=== PATIENT | male | born 1940 | race Caucasian/White ===

== ENCOUNTER 2019-02-23 01:16 | Inpatient (IN) | payer MEDICARE ==
[~2019-02-23] VITALS: Ht 177.8 cm; Wt 103.6 kg
[~2019-02-23 01:16] MED LIST: LEVSOD100 PO; LOSA25 PO; LOVA40 PO; WARF5 PO
[2019-02-23 01:29] LABS: BASOPHILS ABSOLUTE AUTO 0.09 K/mm3 (0.00-0.23); BASOPHILS PERCENT AUTO 1 % (0-2); EOSINOPHILS PERCENT AUTO 2 % (0-6); Hematocrit 48.2 % (37.0-53.0); Hemoglobin 15.8 g/dL (13.5-17.5); IMMATURE GRAN ABSOLUTE AUTO 0.09 K/mm3 (0.00-0.10); IMMATURE GRAN PERCENT AUTO 1 % (0-1); LYMPHOCYTES ABSOLUTE AUTO 3.75 K/mm3 (0.84-5.20); LYMPHOCYTES PERCENT AUTO 26 % (21-46); MONOCYTES ABSOLUTE AUTO 0.89 K/mm3 (0.16-1.47); MONOCYTES PERCENT AUTO 6 % (4-13); Mean Corpuscular HGB 28.7 pg (26.0-34.0); Mean Corpuscular HGB Conc 32.8 g/dL (31.5-36.5); Mean Corpuscular Volume 88 fL (80-100); NEUTROPHILS ABSOLUTE AUTO 9.25 K/mm3 (1.96-9.15); NEUTROPHILS PERCENT AUTO 64 % (41-73); Platelet Count 195 K/mm3 (150-400); RDW Coefficient Variation 13.4 % (11.7-14.2); RDW Standard Deviation 43.3 fL (35.1-46.3); White Blood Cell Count 14.37 K/mm3 (4.00-11.30)
[2019-02-23 01:44] LABS: International Normalized Ratio 1.82; Prothrombin Time Results 18.3 Sec (9.7-11.5)
[2019-02-23 01:51] LABS: Alanine Aminotransfer (ALT/SGP 28 U/L (12-78); Albumin/Globulin Ratio 1.2 (0.8-1.8); Alk Phos 60 U/L (50-136); Anion Gap 8 mmol/L (6-16); Aspartate Aminotrans (AST/SGOT 23 U/L (12-37); Bilirubin, Total 0.7 mg/dL (0.1-1.0); Blood Urea Nitrogen 26 mg/dL (8-24); Bun/Creatinine Ratio 24.3 (12.0-20.0); CO2, Blood 26 mmol/L (21-32); Calcium, Blood 8.7 mg/dL (8.5-10.1); Chloride, Blood 108 mmol/L (98-108); Creatinine, Blood 1.07 mg/dL (0.60-1.20); Globulin, Blood 3.2 g/dL (2.2-4.0); Glomerular Filtration Rate >60 (60-); Glucose, Blood 186 mg/dL (70-99); Potassium, Blood 4.2 mmol/L (3.5-5.5); Sodium, Blood 142 mmol/L (136-145); Total Protein, Blood 7.2 g/dL (6.4-8.2); Troponin I 0.075 ng/mL (0.000-0.040)
[2019-02-23 01:54] LABS: PCO2 Arterial 45.8 mmHg (35-45); PO2 Arterial 92.7 mmHg (80-100); pH Blood Arterial 7.31 (7.35-7.45)
[2019-02-23 03:58] LABS: Source, Urine Catheter
[2019-02-23 04:03] LABS: Bilirubin, Urine Neg (Neg); Blood, Urine 1+ (Neg); Glucose Qualitative, Urine Neg (Neg); Ketones, Urine Neg (Neg); Leukocyte Esterase, Urine Neg (Neg); Nitrite, Urine Neg (Neg); Protein, Urine 3+ (Neg); Specific Gravity, Urine 1.025 (1.003-1.022); Urobilinogen, Urine 1+ (Normal)
[2019-02-23 04:07] LABS: Appearance, Urine Clear (Clear); Color, Urine Yellow (P-Yellow)
[2019-02-23 04:41] LABS: Amorphous Light (0-Heavy); Bacteria Not Seen /hpf; Mucus Light (0-Heavy); Red Blood Cells, Urine 0-2 /hpf (0-2); Squamous Epithelial Cells Not Seen /hpf (Few); White Blood Cells, Urine Rare /hpf (0-5)
[2019-02-23 05:35] LABS: Hemoglobin 14.5 g/dL (13.5-17.5); Mean Corpuscular HGB 28.6 pg (26.0-34.0); Mean Corpuscular Volume 87 fL (80-100); Mean Platelet Volume 10.8 fL (9.1-12.4); Platelet Count 164 K/mm3 (150-400); RDW Coefficient Variation 13.5 % (11.7-14.2); RDW Standard Deviation 43.2 fL (35.1-46.3); Red Blood Cell Count 5.07 M/mm3 (4.30-5.90); White Blood Cell Count 16.79 K/mm3 (4.00-11.30)
[2019-02-23 06:37] LABS: Alanine Aminotransfer (ALT/SGP 31 U/L (12-78); Albumin, Blood 3.5 g/dL (3.4-5.0); Albumin/Globulin Ratio 1.2 (0.8-1.8); Alk Phos 55 U/L (50-136); Anion Gap 7 mmol/L (6-16); Aspartate Aminotrans (AST/SGOT 92 U/L (12-37); Bilirubin, Total 0.8 mg/dL (0.1-1.0); Blood Urea Nitrogen 29 mg/dL (8-24); Bun/Creatinine Ratio 27.1 (12.0-20.0); CO2, Blood 25 mmol/L (21-32); Calcium, Blood 8.2 mg/dL (8.5-10.1); Chloride, Blood 109 mmol/L (98-108); Creatinine, Blood 1.07 mg/dL (0.60-1.20); Globulin, Blood 2.8 g/dL (2.2-4.0); Glomerular Filtration Rate >60 (60-); Glucose, Blood 216 mg/dL (70-99); Sodium, Blood 141 mmol/L (136-145); Total Protein, Blood 6.3 g/dL (6.4-8.2)
--- NOTE | 2019-02-23 06:42 | NUR ---
SHIFT NOTE: PT ARRIVED VIA GURNEY FROM ED AT APPRX 0600. PT RESPONDS ONLY TO PAIN AND HAS OCCASIONAL BODY TWITCHING. PUPILS FIXED BILATERALLY 2mm. PT VENTILATED, SETTING: AC 16 Vt 450 PEEP 5.0 FiO2 40% SATS 94%. PT WITH GREAT FRIEND SUPPORT AT BEDSIDE AND WHO STATE HAVE KNOWN PT FOR APPRX 50 YEARS. PT'S SON IS APPARENTLY DRIVING DOWN FROM [place] AND SHOULD BE ARRIVING SOON. PT WITH PROPOFOL INFUSING AT 30mcg AND NS 75/hr. IV PATENT. KAMARA PATENT AND DRAINING NAGI COLORE URINE WITH SEDIMENT.
--- NOTE | 2019-02-23 07:15 | NUR ---
START OF SHIFT NOTE: RECEIVED REPORT FROM DONNELL RN, ASSUMED CARE, PATIENT IS AWAKE, ALERT AND ORIENTED, ABLE TO FOLLOW COMMANDS AND ANSWER ALL QUESTIONS, LUNG SOUNDS CLEAR, SR/ST, WITH HR IN UPPER 90'S, INSULIN DRIP HAS BEEN STOPPED, PATIENT NOW ON AC/HS CHEMSTICKS, WITH HUMALOG AND LANTUS COVERAGE, PATIENT HAS SIGNIFICANT OTHER SLEEPING IN ROOM, RIGHT FOOT HAS HALLUX AND TOE NEXT TO IT MISSING, PATIENT REPORTS THAT BOTH TOES WERE AMPUTATED AFTER AN INFECTION, PODIATRY CONSULTED, CALL LIGHT IN REACH, WILL CONTINUE TO MONITOR.
--- NOTE | 2019-02-23 07:15 | NUR ---
START OF SHIFT NOTE: RECEIVED REPORT FROM DONNELL RN, ASSUMED CARE, PATIENT IS SEDATED WITH PROPOFOL AT 30, ON MECHANICAL VENTILATION, SETTINGS ARE 16/5/450/40 %, PATIENT WITHDRAWS FROM PAINFUL STIMULI, LUNG SOUNDS ARE CLEAR, SR WITH BBB WITH HR IN 90'S, BOWEL TONES PRESENT, KAMARA CATHETER IN PLACE DRAINING ADEQUATE AMOUNTS OF URINE, SON ARRIVED AT BEDSIDE, EX CALLED FOR UPDATE, REFERRED TO SON, FRIENDS AT BEDSIDE, CALL LIGHT IN REACH, WILL CONTINUE TO MONITOR.
--- NOTE | 2019-02-23 08:45 | NUR ---
DR. MCINTYRE IN TO SEE PATIENT, DR. LEDEZMA CONSULTED, CONSULT ORDERED AND DR. LEDEZMA NOTIFIED. ALSO PALLIATIVE CARE IN TO SEE FAMILY, MALDONADO CABRAL WILL ORDER COMFORT CART FOR FAMILY, SON AT BEDSIDE, CALL LIGHT IN REACH, WILL CONTINUE TO MONITOR.
--- NOTE | 2019-02-23 10:10 | NUR ---
INITIAL PALLIATIVE CARE VISIT: Case conferenced with and RN, reviewed EMR prior to my visit. Pt is a 78 yr old male who was found unresponsive by his friends/neighbors after being asked by an [place] friend to check on him at home. Pt had verbalized that he was not feeling well by phone to friend. Pt also had emesis and probable aspiration during LOC. Upon arrival to ER and after studies done, pt found with [employer] DEAN, intracranial and subarachnoid bleed, diffuse and extending into ventricles. Pt has [employer] DEAN edema. He was ventilated and admitted to ICU. Pt's son, Reggie, has arrived from [place] this am and I met with him at bedside. Pt is unresponsive, sedated. He did not demonstrate any nonverbal indicators of agitation, pain or distress while I was in the room. He had some sporatic leg twitching. Time spent talking with Reggie. A female friend of the patient was also at the bedside and on the phone. Reggie is distressed that it will take his brother about 6 hours to get here from [place]. I assured him that his dad was in good hands, comfortable and in no distress while he waited for his brother. Reggie relieved that it is not a problem and pt will not suffer while waiting. Beverages/food offered and Reggie brought coffee upon his request. Reggie and family friends praying over pt when I returned with coffee. Nursing acid supervisor notified that we may need Newspaper Distributor Supervisor services this afternoon/evening. Family has spoken with and determined that they would like life support withdrawn once vivas family members arrive. Goals of care are clear to family wanting only comfort for pt. They are aware of his extremely grave prognosis and do not have any questions. PLAN: I will remain available t/o the day as support to family.
--- NOTE | 2019-02-23 11:14 | NUR ---
DR. LEDEZMA IN TO SEE FAMILY AND DISCUSS PLAN OF CARE, AWAITING NEW ORDERS.
--- NOTE | 2019-02-23 13:08 | NUR ---
PROPOFOL WAS TURNED OFF PER DR. LEDEZMA TO BE ABLE TO ASSESS PATIENT'S NEUROLOGICAL STATUS, PATIENT STARTED TO VOMIT TWICE, RT WAS CALLED, CUFF REINFLATED, OG TUBE CLAMPED AT THE TIME, NOW AT LIS, DR. LEDEZMA AWARE, CHEST XRAY ORDERED TO CHECK OG AND ETT TUBE PLACEMENT, ALSO PATIENT'S TEMP AT 101, DR. LEDEZMA AWARE AND ORDER FOR ACETAMINOPHEN WRITTEN, FAMILY WAS ASKED TO STEP OUT UNTIL CARE AND XRAY HAVE BEEN COMPLETED, CALL LIGHT IN REACH, WILL CONTINUE TO MONITOR.
--- NOTE | 2019-02-23 14:43 | NUR ---
PATIENT WILL BE TRANSFERRED TO [facility] VIA REACH/LIFE FLIGHT, AWAITING THEIR ARRIVAL.
--- NOTE | 2019-02-23 15:00 | NUR ---
REPORT WAS CALLED TO TRISTON REECE, [facility], [facility] RN.
--- NOTE | 2019-02-23 15:15 | NUR ---
REACH FLIGHT CREW ARRIVED AND REPORT WAS GIVEN TO TRISTON SU, FLIGHT CREW, PATIENT BEING PREPARED FOR AIR TRANSPORT TO [facility], PROPOFOL WAS RESTARTED AT 50, AND NICARDIPINE DRIP WAS ORDERED BY DR. LEDEZMA TO GO WITH PATIENT FOR ELEVATED BLOOD PRESSURE, PATIENT ALSO RECEIVED 10 MG OF HYDRALAZINE IV, WILL CONTINUE TO MONITOR.
--- NOTE | 2019-02-23 16:17 | NUR ---
PATIENT AIRLIFTED TO [facility] VIA REACH, PATIENT LEFT WITH ALL DOCUMENTATION AND BELONGINGS WERE GIVEN TO CHANDAN GAGE.
[2019-02-27 11:25] LABS: Calcium, Ionized (POC) 1.17 mmol/L (1.10-1.46); Chloride (POC) 104 mmol/L (98-108); Creatinine (POC) 1.1 mg/dL (0.8-1.3); Glucose (ISTAT POC) 185 mg/dL (70-99); Hemoglobin (POC) 16.3 g/dL (13.5-17.5); Potassium (POC) 4.1 mmol/L (3.5-5.5); Sodium (POC) 141 mmol/L (135-148); Total CO2 (POC) 24 mmol/L (21-32)
== END 2019-02-23 15:30 | disposition short-term general hospital (02) | DRG 64 ==
LOC: ER 01:16 → EDBD 01:16 → ICUW 05:34
PROVIDERS: Emergency Medicine; ADMIT Internal Medicine
PROC: 0BH17EZ Insertion of Endotracheal Airway into Trachea, Via Natural or Artificial Opening (ICD-10-PCS; principal; 2019-02-23)
PROC: 5A1935Z Respiratory Ventilation, Less than 24 Consecutive Hours (ICD-10-PCS; 2019-02-23)
DX: I62.9 Nontraumatic intracranial hemorrhage, unspecified (principal); J69.0 Pneumonitis due to inhalation of food and vomit; J96.90 Respiratory failure, unspecified, unspecified whether with hypoxia or hypercapnia; G93.6 Cerebral edema; G91.9 Hydrocephalus, unspecified; I25.10 Atherosclerotic heart disease of native coronary artery without angina pectoris; Z95.1 Presence of aortocoronary bypass graft; I10 Essential (primary) hypertension; E78.00 Pure hypercholesterolemia, unspecified; Z66 Do not resuscitate; I25.2 Old myocardial infarction; Z51.5 Encounter for palliative care
CPT/HCPCS: 31720; 36415; 36600; 51702; 70450; 71045; 72125; 80047; 80053; 81001; 82803; 84484; 85014; 85025; 85027; 85610; 85730; 94003; 96365-59; 96375-59; 96376-59; 99291-25; 99292; C9113; J0330; J1953; J2060; J2543; J2704; J3010; J3430; J7030